=== PATIENT | male | born 1945 | race Two or more races ===

== ENCOUNTER 2020-02-17 09:17 | Inpatient (IN) | payer MEDICARE, MEDICAID ==
[~2020-02-17] VITALS: Ht 177.8 cm; Wt 105.4 kg
[2020-02-17 11:46] LABS: INR 0.98 (0.9-1.15); Partial Thromboplastin Time 26.5 sec (23.64-32.05)
[2020-02-17 11:50] LABS: Albumin 3.9 g/dL (3.4-5.0); Anion Gap 11 (5-15); Blood Urea Nitrogen 70 mg/dL (7-18); Calcium 7.9 mg/dL (8.5-10.1); Carbon Dioxide 22 mmol/L (21-32); Chloride 100 mmol/L (98-107); Glucose 171 mg/dL (74-106); Sodium 133 mmol/L (136-145)
[2020-02-17 11:58] LABS: Alanine Aminotransferase 22 U/L (16-61); Alkaline Phosphatase 105 U/L (45-117); Aspartate Aminotransferase 9 U/L (15-37); BUN/Creatinine Ratio 8.5; Bilirubin, Total 0.5 mg/dL (0.2-1.0); GFR African American 8 mL/min; GFR Non-African American 7 mL/min; Total Protein 7.2 g/dL (6.4-8.2)
[2020-02-17] MEDS ORDERED: CALCIUM GLUC 4.65meq/50ml D5AE 50 ML IV ONE (12:15)
[2020-02-17 12:25] LABS: Potassium 7.6 mmol/L (3.5-5.1)
[2020-02-17] MEDS ORDERED: DEXTROSE (50%) 50ML SYRG IV ONE (12:45)
[2020-02-17] MEDS ORDERED: DEXTROSE (50%) 50ML SYRG IV PRN (12:45)
[2020-02-17] MEDS ORDERED: InsuLIN REG 1unit/0.01ml Soln (100units/ml) IV ONE (12:45)
[2020-02-17] MEDS ORDERED: ALBUTEROL SULF 2.5 MG/0.5ML(0.5%) NEB SOLN NEB ONE (12:45)
[2020-02-17] MEDS ORDERED: NITROGLYCERIN 0.4 MG SL TAB SL PRN (12:45)
[2020-02-17] MEDS ORDERED: MORPHINE SULF INJ 2 MG/ML SYRINGE 1ML IV PRN (12:45)
[2020-02-17] MEDS ORDERED: SODIUM ZIRCONIUM CYCL 10 GM PAK PO ONE (12:45)
[2020-02-17] MEDS ORDERED: SODIUM BICARBONATE 8.4 % INJ 50ML VIAL IV ONE (12:45)
[2020-02-17 12:59] LABS: Basophils # (auto) 0.1 10 ^3/uL (0-0.2); Basophils % (auto) 0.4 % (0.0-2.0); Eosinophils # (auto) 0.2 10 ^3/uL (0-0.8); Eosinophils % (auto) 1.2 % (0.0-7.0); Hematocrit 35.6 % (41.0-53.0); Hemoglobin 11.2 g/dL (13.5-17.5); Lymphocytes # (auto) 0.9 10 ^3/uL (0.4-5.4); Lymphocytes % (auto) 7.4 % (10.0-50.0); Mean Corpuscular Hemoglobin 27.7 pg (28.0-32.0); Mean Corpuscular Hgb Conc. 31.4 g/dL (32.0-36.0); Mean Corpuscular Volume 88.1 fL (80.0-100.0); Monocytes # (auto) 0.8 10 ^3/uL (0-1.3); Monocytes % (auto) 6.3 % (0.0-12.0); Neutrophils # (auto) 10.7 10 ^3/uL (1.6-8.6); Neutrophils % (auto) 84.7 % (37.0-80.0); Nucleated Red Blood Cells % 0.1 %; Platelet Count (auto) 269 10^3/uL (140-450); Red Blood Cells 4.04 10^6/uL (4.5-5.90); White Blood Cell 12.6 10^3/uL (4.4-10.8)
[2020-02-17] MEDS ORDERED: VANCOMYCIN PER PHARMACY 0 MG IV SCH (13:15)
[2020-02-17] MEDS ORDERED: SODIUM BICARBONATE 8.4% INJ 50ML SYRINGE ONE (13:21)
[2020-02-17] MEDS ORDERED: VANCOMYCIN 1GM/250ML 250 ML IV ONE ×2 (14:00→20:00)
[2020-02-17] MEDS: cefTRIAXone 1GM/50ML D5W 50 ML IV SCH (14:40)
[2020-02-17] MEDS ORDERED: SODIUM CHL 0.9% 1000 ML BAG XX ONE ×2 (14:45→15:15)
[2020-02-17] MEDS: ACCU-CHEK COMFORT CURVE STRIP VI SCH ×2 (18:10→22:23)
[2020-02-17] MEDS: InsuLIN REG 1unit/0.01ml Soln (100units/ml) SC SCH ×2 (18:10→22:22)
[2020-02-17 20:18] LABS: BUN/Creatinine Ratio 7.3; Calcium 7.8 mg/dL (8.5-10.1); Potassium 3.7 mmol/L (3.5-5.1)
[2020-02-17] MEDS: hydrALAZINE HCL 20 MG/ML VL IV PRN (20:28)
[2020-02-17] MEDS ORDERED: ATORVASTATIN 20 MG TAB PO SCH (22:00)
[2020-02-17] MEDS: METOPROLOL TARTRATE 50 MG TAB PO SCH (22:10)
--- NOTE | 2020-02-17 22:40 | NUR ---
Patient To Tele Floor from ER Patient AOx4, no signs or distress or SOB. Patient safety precaution in place w/ HOB at 30 degrees, bed locked in lowest position, and call light within reach.
[2020-02-17 23:00] VITALS: BP_SYST 160; BP_SYST 166; BP_DIAS 84
--- NOTE | 2020-02-17 23:40 | NUR ---
Unable to Obtain Home Meds Please contact family for at home medication(s).
--- NOTE | 2020-02-17 23:43 | NUR ---
Patient Contact Patient's son Luis phone number [phone]
[2020-02-18] MEDS: hydrALAZINE HCL 20 MG/ML VL IV PRN ×3 (02:26→17:00)
--- NOTE | 2020-02-18 02:30 | NUR ---
HIGH BP Patient blood pressure 170/77 and pulse was 82; given PRN BP medication as prescribed. Will re-check and continue to monitor.
[2020-02-18 05:00] VITALS: BP 175/74
[2020-02-18 05:54] LABS: Basophils # (auto) 0 10 ^3/uL (0-0.2); Basophils % (auto) 0.4 % (0.0-2.0); Eosinophils # (auto) 0.1 10 ^3/uL (0-0.8); Eosinophils % (auto) 1.7 % (0.0-7.0); Hematocrit 33.1 % (41.0-53.0); Hemoglobin 10.8 g/dL (13.5-17.5); Lymphocytes # (auto) 0.9 10 ^3/uL (0.4-5.4); Lymphocytes % (auto) 10.9 % (10.0-50.0); Mean Corpuscular Hemoglobin 28.4 pg (28.0-32.0); Mean Corpuscular Hgb Conc. 32.7 g/dL (32.0-36.0); Mean Corpuscular Volume 86.8 fL (80.0-100.0); Monocytes # (auto) 0.7 10 ^3/uL (0-1.3); Monocytes % (auto) 9.2 % (0.0-12.0); Neutrophils # (auto) 6.1 10 ^3/uL (1.6-8.6); Neutrophils % (auto) 77.8 % (37.0-80.0); Nucleated Red Blood Cells % 0.1 %; Platelet Count (auto) 250 10^3/uL (140-450); Red Blood Cells 3.81 10^6/uL (4.5-5.90); Red Cell Distribution Width 14.9 % (11.8-14.3); White Blood Cell 7.8 10^3/uL (4.4-10.8)
--- NOTE | 2020-02-18 06:24 | NUR ---
Patient complained of nausea upon waking up 20 minutes ago, but did not vomit. Patient now states he does not feel any nausea. Will continue to monitor.
[2020-02-18] MEDS: InsuLIN REG 1unit/0.01ml Soln (100units/ml) SC SCH ×4 (06:28→22:43)
[2020-02-18] MEDS: ACCU-CHEK COMFORT CURVE STRIP VI SCH ×4 (06:28→22:36)
[2020-02-18 06:30] LABS: Albumin 3.2 g/dL (3.4-5.0); BUN/Creatinine Ratio 7.1; Bilirubin, Total 0.5 mg/dL (0.2-1.0); Total Protein 6.6 g/dL (6.4-8.2)
--- NOTE | 2020-02-18 06:30 | NUR ---
Critical Lab Value Potassium level of 5.7; Hospitalist paged.
[2020-02-18 06:37] LABS: Potassium 5.7 mmol/L (3.5-5.1)
--- NOTE | 2020-02-18 07:06 | NUR ---
Closing Note Report given to morning RN. Patient AOx4, patient safety precautions in place.
--- NOTE | 2020-02-18 08:00 | NUR ---
Opening Shift Note Assumed care of patient, awake, alert and oriented X4. No S/S of distress/SOB or pain. Patient is [place] speaking only, translation provided by CARMEN Chow. Tele# 32, sinus rhythm @ 89 bpm. IV to right forearm, 20 gauge, patent and saline locked. Left upper arm fistula with good bruit and thrill. Instructed on POC and to call for assist PRN, verbalized understanding. Bed locked, in lowest position, call light within reach, will continue to monitor for changes Q1hr and PRN.
--- NOTE | 2020-02-18 08:00 | NUR ---
WOUND Posterior head laceration, open to air, scab intact, no drainage or odor noted.
[2020-02-18] MEDS: cefTRIAXone 1GM/50ML D5W 50 ML IV SCH (08:51)
[2020-02-18 09:28] VITALS: BP 179/74
[2020-02-18] MEDS ORDERED: SODIUM ZIRCONIUM CYCL 10 GM PAK PO SCH (10:00)
[2020-02-18] MEDS: METOPROLOL TARTRATE 50 MG TAB PO SCH ×2 (10:27→22:35)
[2020-02-18] MEDS ORDERED: VANCOMYCIN 500 MG in D5W 5% 100 ML IV ONE (11:00)
[2020-02-18] MEDS: SEVELAMER 800 MG TAB PO SCH ×2 (12:29→18:15)
[2020-02-18 13:00] VITALS: BP 173/78
[2020-02-18 16:52] VITALS: BP 184/73
--- NOTE | 2020-02-18 17:30 | NUR ---
CARDIOLOGY Subhash Verdugo at bedside for Cardiology consult. New orders received and followed through. Patient updated on plan of care, verbalized understanding.
[2020-02-18] MEDS ORDERED: ISOSORBIDE MONONITRATE ER 60 MG TAB PO ONE (17:45)
[2020-02-18] MEDS ORDERED: LORazepam 2MG/ML-1ML VIAL IV PRN (19:30)
--- NOTE | 2020-02-18 19:49 | NUR ---
Care endorsed to RATNA Schmid, night nurse.
[2020-02-18 19:58] LABS: Cholesterol 103 mg/dL (< 200)
[2020-02-18 20:01] LABS: HDL Cholesterol 34 mg/dL (40-59); LDL Cholesterol 48 mg/dL (< 100); Triglycerides 139 mg/dL (< 150)
[2020-02-18] MEDS: ASPirin-EC 81 mg tab PO SCH (20:48)
[2020-02-18 22:00] VITALS: BP 185/74
[2020-02-18] MEDS: ATORVASTATIN 20 MG TAB PO SCH (22:34)
[2020-02-19] VITALS (7 sets, daily range): BP systolic 17–193; BP diastolic 71–93
[2020-02-19] MEDS: SODIUM ZIRCONIUM CYCL 10 GM PAK PO SCH ×2 (00:31→11:23)
[2020-02-19] MEDS: hydrALAZINE HCL 20 MG/ML VL IV PRN ×2 (00:37→06:31)
--- NOTE | 2020-02-19 01:53 | NUR ---
PAGED HOSPITALIST TO NOTIFY OF ELEVATED BLOOD PRESSURE 193/77 HR 80. ALREADY PROVIDED PRN HYDRALAZINE. STILL ELEVATED. AWAITING PHONE CALL BACK.
--- NOTE | 2020-02-19 02:28 | NUR ---
HOSPITALIST Received call from Hospitalist Dale Barba NP. New orders received; read back and verified.
[2020-02-19] MEDS ORDERED: cloNIDine HCL 0.1 MG TAB PO ONE (02:30)
[2020-02-19] MEDS: ACCU-CHEK COMFORT CURVE STRIP VI SCH ×4 (06:30→22:29)
[2020-02-19] MEDS: InsuLIN REG 1unit/0.01ml Soln (100units/ml) SC SCH ×4 (06:30→22:33)
[2020-02-19] MEDS ORDERED: SODIUM CHL 0.9% 1000 ML BAG XX ONE (07:00)
[2020-02-19 07:03] LABS: Basophils # (auto) 0 10 ^3/uL (0-0.2); Basophils % (auto) 0.6 % (0.0-2.0); Eosinophils # (auto) 0.2 10 ^3/uL (0-0.8); Hematocrit 32.6 % (41.0-53.0); Hemoglobin 10.6 g/dL (13.5-17.5); Lymphocytes # (auto) 1.1 10 ^3/uL (0.4-5.4); Lymphocytes % (auto) 14.4 % (10.0-50.0); Mean Corpuscular Hemoglobin 28.6 pg (28.0-32.0); Mean Corpuscular Hgb Conc. 32.5 g/dL (32.0-36.0); Mean Corpuscular Volume 88.1 fL (80.0-100.0); Monocytes # (auto) 0.7 10 ^3/uL (0-1.3); Monocytes % (auto) 8.8 % (0.0-12.0); Neutrophils # (auto) 5.8 10 ^3/uL (1.6-8.6); Neutrophils % (auto) 73.2 % (37.0-80.0); Nucleated Red Blood Cells % 0.1 %; Platelet Count (auto) 249 10^3/uL (140-450); Red Cell Distribution Width 14.9 % (11.8-14.3)
[2020-02-19 07:18] LABS: BUN/Creatinine Ratio 8.3; Potassium 5.1 mmol/L (3.5-5.1)
[2020-02-19] MEDS: SEVELAMER 800 MG TAB PO SCH ×3 (08:00→17:38)
--- NOTE | 2020-02-19 08:00 | NUR ---
Opening Shift Note Assumed care of patient, awake, alert and oriented X4. No S/S of distress/SOB or pain. Posterior head laceration, open to air, scab intact, no drainage or odor noted. Tele# 32, sinus rhythm @ 75 bpm. IV to right forearm, 20 gauge, patent and saline locked. Left upper arm fistula, Hemodialysis in place. Instructed on POC and to call for assist PRN, verbalized understanding. Bed locked, in lowest position, call light within reach, will continue to monitor for changes Q1hr and PRN.
--- NOTE | 2020-02-19 09:45 | NUR ---
NEPHROLOGY Dr Lazo at bedside for Nephrology follow up, no new orders received. Plan of care discussed with patient, verbalized understanding.
[2020-02-19] MEDS ORDERED: LISINOPRIL 20 MG TAB PO SCH (10:00)
[2020-02-19] MEDS: cefTRIAXone 1GM/50ML D5W 50 ML IV SCH (11:19)
[2020-02-19] MEDS: ASPirin-EC 81 mg tab PO SCH (11:20)
[2020-02-19] MEDS: ISOSORBIDE MONONITRATE ER 60 MG TAB PO SCH (11:21)
[2020-02-19] MEDS: METOPROLOL TARTRATE 50 MG TAB PO SCH ×2 (11:21→22:29)
--- NOTE | 2020-02-19 12:30 | NUR ---
ROUNDS Dr Derick Pearce at bedside for rounds, new orders received and followed through. Patient updated on plan of care, verbalized understanding.
--- NOTE | 2020-02-19 15:30 | NUR ---
ELECTROENCEPHALOGRAM EEG COMPLETED AT BEDSIDE. PRIMARY RN MILAGROS FUCHS.
[2020-02-19] MEDS ORDERED: VANCOMYCIN 1GM/250ML 250 ML IV ONE (18:00)
--- NOTE | 2020-02-19 18:45 | NUR ---
IV removal IV DC'd to right forearm due to swelling, with clean sterile technique, catheter fully intact. Pressure dressing applied to site. Patient tolerated well. IV insertion IV access obtained, via clean sterile technique by inserting 22 gauge catheter to the right wrist. IV secured properly. No trauma to site. Patient tolerated procedure well.
--- NOTE | 2020-02-19 19:21 | NUR ---
Care endorsed to RATNA Garcia, night nurse.
--- NOTE | 2020-02-19 19:30 | NUR ---
Opening Shift Note Assumed care of patient, awake, AAOx4. On room air and ambulatory. Laceration to scalp noted, open to air. No S/S of distress/SOB or pain. Bed in lowest locked position, side rails up x2, call light within reach. Instructed on POC and to call for assist PRN, will continue to monitor for changes Q1hr and PRN.
[2020-02-19] MEDS: ATORVASTATIN 20 MG TAB PO SCH (22:28)
[2020-02-20 05:00] VITALS: BP 177/73
[2020-02-20] MEDS: hydrALAZINE HCL 20 MG/ML VL IV PRN ×2 (06:14→12:05)
[2020-02-20] MEDS: ACCU-CHEK COMFORT CURVE STRIP VI SCH ×2 (06:15→11:46)
[2020-02-20] MEDS: InsuLIN REG 1unit/0.01ml Soln (100units/ml) SC SCH ×2 (06:15→11:46)
[2020-02-20 06:30] LABS: Basophils # (auto) 0.1 10 ^3/uL (0-0.2); Basophils % (auto) 0.7 % (0.0-2.0); Eosinophils # (auto) 0.3 10 ^3/uL (0-0.8); Eosinophils % (auto) 3.6 % (0.0-7.0); Hematocrit 29.5 % (41.0-53.0); Hemoglobin 9.9 g/dL (13.5-17.5); Lymphocytes # (auto) 0.9 10 ^3/uL (0.4-5.4); Lymphocytes % (auto) 11.6 % (10.0-50.0); Mean Corpuscular Hemoglobin 29.3 pg (28.0-32.0); Mean Corpuscular Hgb Conc. 33.7 g/dL (32.0-36.0); Mean Corpuscular Volume 87.1 fL (80.0-100.0); Monocytes # (auto) 0.8 10 ^3/uL (0-1.3); Monocytes % (auto) 11.1 % (0.0-12.0); Neutrophils # (auto) 5.5 10 ^3/uL (1.6-8.6); Nucleated Red Blood Cells % 0.1 %; Platelet Count (auto) 213 10^3/uL (140-450); Red Blood Cells 3.39 10^6/uL (4.5-5.90); Red Cell Distribution Width 14.7 % (11.8-14.3); White Blood Cell 7.6 10^3/uL (4.4-10.8)
[2020-02-20 06:47] LABS: Calcium 7.5 mg/dL (8.5-10.1); Potassium 4.3 mmol/L (3.5-5.1)
[2020-02-20 08:00] VITALS: BP 157/67
[2020-02-20] MEDS: SEVELAMER 800 MG TAB PO SCH ×2 (08:06→11:46)
[2020-02-20] MEDS: cefTRIAXone 1GM/50ML D5W 50 ML IV SCH (08:06)
[2020-02-20 09:00] VITALS: BP 157/67
[2020-02-20] MEDS: ASPirin-EC 81 mg tab PO SCH (09:39)
[2020-02-20] MEDS: ISOSORBIDE MONONITRATE ER 60 MG TAB PO SCH (09:40)
[2020-02-20] MEDS: METOPROLOL TARTRATE 50 MG TAB PO SCH (09:40)
--- NOTE | 2020-02-20 10:30 | NUR ---
DR DO BEDSIDE WITH PATIENT
[2020-02-20] MEDS: SODIUM ZIRCONIUM CYCL 10 GM PAK PO SCH ×2 (11:46)
--- NOTE | 2020-02-20 12:18 | NUR ---
INFORMED DR DO PATIENTS BP IS ELEVATED 193/87, APRESOLINE HAS BEEN GIVEN. PATIENT IS ALSO COMPLAINING OF HEAD PAIN. ORDERS RECEIVED AND CARRIED OUT. Addendum: 02/20/20 at 1546 by BONNY WETZEL RN RN PER DR DO, PATIENT IS STILL CLEAR FOR D/C.
[2020-02-20] MEDS ORDERED: amLODIPine BESYLATE 5 MG TAB PO SCH (12:30)
[2020-02-20] MEDS ORDERED: ACETAMINOPHEN 325 MG TAB PO ONE (12:30)
--- NOTE | 2020-02-20 12:30 | NUR ---
PER DR DO ORDER, I INFORMED DR GIMENEZ OF PATIENTS ELEVATED BP. ALSO INFORMED HIM BP MED WAS GIVEN AND WILL CONTINUE TO MONITOR. NO ORDER RECEIVED
[2020-02-20 12:49] VITALS: BP_SYST 155; BP_SYST 193; BP_DIAS 87; BP_DIAS 92
[2020-02-20 13:00] VITALS: BP 193/87
--- NOTE | 2020-02-20 13:10 | NUR ---
BP REASSESSMENT REASSESSED BP AFTER RECEIVING APRESOLINE. BP 190/77. WILL ADMINISTER SCHEDULED BP MED
--- NOTE | 2020-02-20 14:30 | NUR ---
BP REASSESSMENT REASSESSED BP AFTER RECEIVING BP MEDS. BP NOW 155/92
--- NOTE | 2020-02-20 16:05 | NUR ---
Discharge instructions given as ordered. Encouraged to follow up with PMD as instructed and appt schedule for REPLAC[facility] BY [facility] post discharge clinic on March 03 @ 10:30 AM. Patient also advised to schedule appt with Dr Loera in 1 week. Phone # and address provided. All questions and concerns addressed. Patient verbalized understanding. Medication reconciliation form completed and copy given to patient. No home medications held in Pharmacy, and patient refused vaccines. IV removed with catheter intact and pressure dressing applied. Telemetry unit returned to ICU. Patient taken to vehicle via wheelchair with all personal belongings, accompanied by staff member. No distress noted at time of departure.
== END 2020-02-20 16:05 | disposition home or self-care (01) | DRG 871 ==
LOC: EDBD 09:17 → EDUNIT# 09:17 → ER 09:17 → TELE 09:18 → TELE-CENTR 22:40
PROVIDERS: ADMIT Nurse Practitioner Acute Care; ATTEND Family Medicine
PROC: 5A1D70Z Performance of Urinary Filtration, Intermittent, Less than 6 Hours Per Day (ICD-10-PCS; principal; 2020-02-17)
PROC: 5A1D70Z Performance of Urinary Filtration, Intermittent, Less than 6 Hours Per Day (ICD-10-PCS; 2020-02-19)
DX: A41.9 Sepsis, unspecified organism (principal); N18.6 End stage renal disease; I50.43 Acute on chronic combined systolic (congestive) and diastolic (congestive) heart failure; I16.9 Hypertensive crisis, unspecified; I13.2 Hypertensive heart and chronic kidney disease with heart failure and with stage 5 chronic kidney disease, or end stage renal disease; B19.10 Unspecified viral hepatitis B without hepatic coma; E87.5 Hyperkalemia; R55 Syncope and collapse; D63.8 Anemia in other chronic diseases classified elsewhere; E66.9 Obesity, unspecified; Z68.33 Body mass index [BMI] 33.0-33.9, adult; E11.22 Type 2 diabetes mellitus with diabetic chronic kidney disease; E78.5 Hyperlipidemia, unspecified; G47.10 Hypersomnia, unspecified; I25.10 Atherosclerotic heart disease of native coronary artery without angina pectoris; J44.9 Chronic obstructive pulmonary disease, unspecified; Z79.82 Long term (current) use of aspirin; I25.2 Old myocardial infarction; Z99.2 Dependence on renal dialysis; Z79.84 Long term (current) use of oral hypoglycemic drugs; Z79.899 Other long term (current) drug therapy; Z83.3 Family history of diabetes mellitus
CPT/HCPCS: 36415; 70450; 70551; 71045; 80048; 80053; 80061; 80202; 82306; 82962; 83036; 83880; 83970; 84100; 84484; 85025; 85610; 85730; 87040; 90935; 93306; 93886; 94640; 95819; 96365; 96367; 96375; G0378; J0610; J0696; J1642; J1815; J7060